=== PATIENT | male | born 1945 | race Caucasian/White ===

== ENCOUNTER 2017-12-13 15:34 | Emergency (ER) | payer MEDICARE ==
[2017-12-13 15:50] LABS: #Basophils 0.1 thou/uL (0.0-0.2); #Eosinphils 0.4 thou/uL (0.0-0.7); #Lymphocytes 1.3 thou/uL (1.20-3.40); #Monocytes 0.6 thou/uL (0.11-0.59); %Basophils 0.9 % (0.0-1.0); %Eosinophils 5.3 % (0.0-10.0); %Lymphocytes 17.4 % (21.0-51.0); %Neutrophils 68.5 % (42.0-75.0); Hemoglobin 14.3 g/dL (14.0-18.0); Mean Corpuscular HGB CONC 33.6 g/dL (32.0-36.0); Mean Corpuscular Hemoglobin 30.6 pg (27.0-31.0); Mean Corpuscular Volume 91.1 fl (80.0-94.0); Mean Platelet Volume 7.7 fL (7.4-10.4); Platelet Count 223 thou/uL (130-400); RBC Distribution Width 10.8 % (11.5-14.5); Red Blood Cell (RBC) Count 4.69 mill/uL (4.70-6.10); White Blood Cell (WBC) Count 7.2 thou/uL (4.8-10.8)
[2017-12-13 15:54] LABS: INR-International Normal Ratio 0.9; Prothrombin Time 12.4 SEC (12.0-14.7)
[2017-12-13 15:55] LABS: PTT 28.1 SEC (22.9-36.1)
--- NOTE | 2017-12-13 15:55 | CT ---
CT HEAD NONCONTRAST: 12/13/17 HISTORY: Stroke alert. Altered mental status. FINDINGS: No comparison. There is no evidence of acute intracranial hemorrhage or infarct. The ventricles appear normal in siz e, shape and position. There is no mass effect or shift of midline structures. Calcifications apparen t within the arterial structures of the brain base. The visualized paranasal sinuses are well aerated . Hyperdensities adjacent to each globe are noted. IMPRESSION: 1. No acute intracranial abnormalities are demonstrated on noncontrast CT head. 2. Atherosclerosis. Findings were called to Dr. Mckinney in the [facility] at 1544 hours. Code CR POS: SJ
[2017-12-13 16:06] LABS: ALT (SGPT) 26 U/L (8-55); AST (SGOT) 28 U/L (5-34); Albumin 4.2 g/dL (3.4-4.8); Alkaline Phosphatase 63 U/L (40-150); Anion Gap 12 mmol/L (10-20); BUN (Urea Nitrogen) 10 mg/dL (8.4-25.7); Bilirubin, Total 0.8 mg/dL (0.2-1.2); Calc. Creatinine Clearance 0 mL/min (70-130); Calcium 9.8 mg/dL (7.8-10.44); Carbon Dioxide 30 mmol/L (23-31); Chloride 93 mmol/L (98-107); Estimated GFR-MDRD 78; Globulin 2.6 g/dL (2.4-3.5); Glucose 112 mg/dL (83-110); Potassium 4.1 mmol/L (3.5-5.1); Protein, Total 6.8 g/dL (5.8-8.1); Sodium 131 mmol/L (136-145); Troponin I Less than 0.010 ng/mL (< 0.028)
--- NOTE | 2017-12-13 16:26 | CT ---
CT HEAD WITH IV CONTRAST CT ARTERIOGRAM NECK WITH IV CONTRAST AND 3D MIP IMAGING CT ARTERIOGRAM HEAD WITH IV CONTRAST AND 3D MIP IMAGING 12/13/17 HISTORY: Altered mental status. Unsteady gait. Dizziness. FINDINGS: There is mild atelectasis at the lung apices. Normal branching of the great vessels from the aortic a rch with mild arterial calcification. There is good flow into each carotid system and each vertebral artery. 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 Significant plaque results in stenosis of the proximal basilar artery which is patent more distally. Mild calcifications present at the carotid bifurcations. Less than 50% stenosis involves the proximal left ICA. Right ICA is widely patent. [place] is intact. Cerebral arteries are patent. No filling defect or aneurysm. No abnormal areas of contrast enhancement. IMPRESSION: Atherosclerosis with significant stenosis of the proximal basilar artery. No acute abnormalities are demonstrated. Findings were called to Dr. Mckinney in the [facility] at 1609 hours. Code CR POS: [id number]
== END 2017-12-13 16:42 | disposition short-term general hospital (02) ==
LOC: NAV ERS 15:34
DX: R42 Dizziness and giddiness (principal); I16.1 Hypertensive emergency; I10 Essential (primary) hypertension; E78.5 Hyperlipidemia, unspecified; F17.220 Nicotine dependence, chewing tobacco, uncomplicated; Z79.899 Other long term (current) drug therapy
CPT/HCPCS: 0042T; 36415; 36416; 70450; 70496; 80053; 82553; 84484; 85025; 85610; 85730; 93005; 94760

== ENCOUNTER 2020-07-28 09:07 | Outpatient (CLI) | payer MEDICARE ==
--- NOTE | 2020-07-28 11:41 | RAD ---
LUMBAR SPINE 3 VIEWS: HISTORY: Low back pain. FINDINGS: Light scoliotic curvature to the right with apex at L2-3. Moderate degenerative changes with spurrin g from the anterior and lateral vertebrae. Slight lateral wedging of L3 on the left due to the scoli otic curvature. Loss of disk space with degenerative disk changes at all levels of the lumbar spine. No evidence of spondylolisthesis seen in the lateral projection. Facet hypertrophy. Aortic calcif ication. 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 POS: [facility]W
== END 2020-07-28 09:08 | disposition home or self-care (01) ==
LOC: NAV RAD 09:07
PROVIDERS: ATTEND Family Medicine
DX: M54.5 Low back pain (principal); M47.816 Spondylosis without myelopathy or radiculopathy, lumbar region
CPT/HCPCS: 72100

== ENCOUNTER 2024-07-21 12:16 | Emergency (ER) | payer MEDICARE ==
[~2024-07-21 12:16] MED LIST: Iopamidol 370 76% 100 ML VIAL ONE
[2024-07-21] MEDS ORDERED: Bisacodyl 10 MG SUPP ONE ×2 (12:39→12:41)
[2024-07-21] MEDS ORDERED: Sodium Chloride 0.9% 1,000 ML ONE ×2 (12:58→14:09)
[2024-07-21 13:28] LABS: #Basophils 0.1 thou/uL (0.0-0.2); #Eosinophils 0.5 thou/uL (0.0-0.7); #Monocytes 0.8 thou/uL (0.11-0.59); #Neutrophils 14.3 thou/uL (1.40-6.50); %Basophils 0.4 % (0.0-1.0); %Neutrophils 85.5 % (42.0-75.0); Hematocrit 36.2 % (42.0-52.0); Hemoglobin 13.4 g/dL (14.0-18.0); Mean Corpuscular Hemoglobin 33.1 pg (27.0-31.0); Mean Corpuscular Volume 89.4 fl (78.0-98.0); Mean Platelet Volume 6.4 fL (7.4-10.4); Platelet Count 300 10x3/uL (130-400); RBC Distribution Width 10.3 % (11.5-14.5); Red Blood Cell (RBC) Count 4.05 mill/uL (4.70-6.10); White Blood Cell (WBC) Count 16.7 10x3/uL (4.8-10.8)
[2024-07-21 13:29] LABS: ALT (SGPT) 15 U/L (8-55); AST (SGOT) 21 U/L (5-34); Albumin 4.1 g/dL (3.4-4.8); Alkaline Phosphatase 63 U/L (40-110); Anion Gap 14 mmol/L (10-20); BUN (Urea Nitrogen) 12 mg/dL (8.4-25.7); Bilirubin, Total 1.1 mg/dL (0.2-1.2); Calc. Creatinine Clearance 0 mL/min (70-130); Calcium 9.8 mg/dL (7.8-10.44); Carbon Dioxide 26 mmol/L (23-31); Chloride 86 mmol/L (98-107); Estimated GFR 92; Globulin 3.2 g/dL (2.4-3.5); Glucose 99 mg/dL (83-110); Lipase 30 U/L (8-78); Potassium 3.3 mmol/L (3.5-5.1); Protein, Total 7.3 g/dL (5.8-8.1); Sodium 123 mmol/L (136-145)
[2024-07-21 14:23] LABS: Bilirubin Negative (Negative); Blood, Urine Negative (Negative); Clarity Clear (Clear); Glucose, Urine (Dipstick) Negative (Negative); Ketone, Urine Negative (Negative); Leukocyte Negative (Negative); Nitrite Negative (Negative); Protein, Urine (Dipstick) Negative (Neg-Trace); Specific Gravity, Urine 1.015 (1.005-1.030); pH, Urine 7.5 (5.0-9.0)
[2024-07-21 14:36] LABS: CAUTI Indications for Culture Dysuria,urgency,freq; RBC/HPF 0-3 HPF (0-3); WBC/HPF None Seen HPF (0-3)
[2024-07-21 14:37] LABS: Urine Culture Reflex No No
[2024-07-21] MEDS ORDERED: Polyethylene Glycol 3350 17 GM Packet ONE (14:57)
[2024-07-21] MEDS ORDERED: Fleet Saline Enema 133 ML BOT ONE (15:36)
== END 2024-07-21 16:35 | disposition home or self-care (01) ==
LOC: NAV ERS 12:16
DX: K59.00 Constipation, unspecified (principal); N40.1 Benign prostatic hyperplasia with lower urinary tract symptoms; N13.8 Other obstructive and reflux uropathy; R33.8 Other retention of urine; R03.0 Elevated blood-pressure reading, without diagnosis of hypertension; E87.1 Hypo-osmolality and hyponatremia; F17.220 Nicotine dependence, chewing tobacco, uncomplicated; E78.00 Pure hypercholesterolemia, unspecified; I10 Essential (primary) hypertension; Z79.82 Long term (current) use of aspirin; Z79.899 Other long term (current) drug therapy
CPT/HCPCS: 74177; 80053; 81001; 83690; 85025; J7030; Q9967; 51702; 51798; 96360; 96361

== ENCOUNTER 2024-07-24 09:01 | Emergency (ER) | payer MEDICARE | END 2024-07-24 09:58 | disposition home or self-care (01) | LOC: NAV ERS 09:01 | DX: R33.9 Retention of urine, unspecified (principal); I10 Essential (primary) hypertension; F17.220 Nicotine dependence, chewing tobacco, uncomplicated | CPT/HCPCS: 99283 ==

== ENCOUNTER 2025-07-02 08:54 | Emergency (ER) | payer MEDICARE ==
[2025-07-02] MEDS ORDERED: Acetaminophen 500 MG TAB ONE (09:47)
== END 2025-07-02 11:45 | disposition home or self-care (01) ==
LOC: NAV ERS 08:54
DX: S53.402A Unspecified sprain of left elbow, initial encounter (principal); S50.02XA Contusion of left elbow, initial encounter; S60.212A Contusion of left wrist, initial encounter; E78.00 Pure hypercholesterolemia, unspecified; I10 Essential (primary) hypertension; F17.220 Nicotine dependence, chewing tobacco, uncomplicated; W01.0XXA Fall on same level from slipping, tripping and stumbling without subsequent striking against object, initial encounter; Z86.73 Personal history of transient ischemic attack (TIA), and cerebral infarction without residual deficits; Z79.82 Long term (current) use of aspirin; Z79.899 Other long term (current) drug therapy